=== PATIENT | female | born 1955 | race Caucasian/White ===

== ENCOUNTER 2017-01-11 12:10 | Emergency (ER) | payer BC ==
[2017-01-11 12:17] VITALS: BP 135/72; PULSE 98; TEMP 98.4; BMI 26.4
--- NOTE | 2017-01-11 12:37 | PDOC ---
Attending Attestation - Resident Resident Name: Luis Alberto Fowler - HPI HPI: 01/15/17 09:26 Pt presents to the ED complaining of perineal abscess denies systemic complaints. 01/15/17 09:52 - Physicial Exam PE: 01/15/17 09:52 + abscess to the perineum. No bartholins. No surrounding cellulitis. - Medical Decision Making 01/15/17 09:53 I and D performed inthe ED. Patient will be discharged bome with antibiotics.
[2017-01-11] MEDS ORDERED: LIDOCAINE 1%/EPI 1:100000 (50 ML MULTI DOSE VIAL) INF ONE (14:15)
[2017-01-11] MEDS ORDERED: LIDOCAINE 1%/EPI 1:100000 (20 ML MULTI DOSE VIAL) ONE (14:22)
[2017-01-11] MEDS ORDERED: CLINDAMYCIN HCL 300 MG CAPSULE PO ONE (14:51)
[2017-01-11] MEDS ORDERED: CLINDAMYCIN HCL 150 MG CAPSULE (FP) ONE (14:58)
--- NOTE | 2017-01-11 15:02 | PDOC ---
History of Present Illness - General Chief Complaint: Abscess Boil Stated Complaint: ABSCESS/ LOWER PELVIC Time Seen by Provider: 01/11/17 12:34 - History of Present Illness Initial Comments: 01/11/17 14:57 61F with dm2 presents with abscess to the left labia majora for the past 5 days , She describes the abscess as being pea-sized on the Thursday increasing to the size of a golf ball today. She tried hot compresses and witness some bloody suppuration. No dysuria, vaginal discharge or fever. Past History - Past Medical History Allergies/Adverse Reactions: Allergies Allergy/AdvReac Type Severity Reaction Status Date / Time No Known Drug Allergies Allergy Verified 01/11/17 12:17 Home Medications: Ambulatory Orders Levothyroxine [Synthroid -] 100 mcg PO DAILY 08/15/15 Clindamycin [Cleocin -] 300 mg PO TID #21 capsule 01/11/17 Insulin Glargine,Hum.rec.anlog [Lantus (nf)] 8 - 10 units SQ AM 01/11/17 Diabetes: Yes HTN: Yes Thyroid Disease: Yes - Suicide/Smoking/Psychosocial Hx Smoking History: Current every day smoker Have you smoked in the past 12 months: Yes Number of Cigarettes Smoked Daily: 5 Information on smoking cessation initiated: No Hx Alcohol Use: No Drug/Substance Use Hx: No Substance Use Type: None Review of Systems - Review of Systems Constitutional: No: Chills, Diaphoresis, Fever HEENTM: No: Symptoms Reported Respiratory: No: Symptoms reported Cardiac (ROS): No: Symptoms Reported ABD/GI: No: Symptoms Reported : No: Burning, Dysuria, Discharge, Incontinence Integumentary: Yes: Erythema *Physical Exam - Vital Signs Last Vital Signs Temp Pulse Resp BP Pulse Ox 98.4 F 98 H 20 135/72 97 01/11/17 12:14 01/11/17 12:14 01/11/17 12:14 01/11/17 12:14 01/11/17 12:14 - Physical Exam General Appearance: Yes: Nourished, Appropriately Dressed. No: Apparent Distress HEENT: positive: EOMI, MARILYN, Normal ENT Inspection Respiratory/Chest: positive: Lungs Clear, Normal Breath Sounds. negative: Chest Tender Cardiovascular: positive: Regular Rhythm, Regular Rate, S1, S2 Female Pelvic Exam: negative: Bartholin mass (abcess is on the labia majora 3cm by 3cm but doesn't extend to the mucosa.) Neurologic: positive: Fully Oriented, Alert, Normal Mood/Affect, Normal Response , Motor Strength 5/5 Procedures - Consent Consent obtained: Verbal, From Patient - Incision and Drainage I&D Site: Left: Other (non-bartholin labia majora abcess ) Betadine cleansed: Yes Anesthesia: 1% Lidocaine Volume(ml): 10 Blade Size: 11 Attempts: 1 Iodinated Packin in Complications: none Dressing: Yes ED Treatment Course - Medications Given in the ED: ED Medications Discontinued Medications Generic Name Dose Route Start Last Admin Trade Name Freq PRN Reason Stop Dose Admin Lidocaine/Epinephrine 10 ml 01/11/17 14:15 01/11/17 14:27 Xylocaine 1%-Epi 1:100,000 INF 01/11/17 14:16 10 ml ONCE ONE Administration Medical Decision Making - Medical Decision Making 01/11/17 15:05 61F with non-batholin left labia majora abscess for 5 days. afebrile. I&D well tolerated, pack with iodine packing. given Clindamycine course Come back in 2 days for packing removal or have your obgyn do it. *DC/Admit/Observation/Transfer Diagnosis at time of Disposition: Abscess of labia majora - Discharge Dispostion Disposition: HOME Condition at time of disposition: Improved Admit: No - Prescriptions Prescriptions: Clindamycin [Cleocin -] 300 mg PO TID #21 capsule - Referrals Referrals: Cj Hayes MD [Primary Care Provider] - Tiana Barbour MD [Staff Physician] - - Patient Instructions Printed Discharge Instructions: DI for Incision and Drainage of a Skin Abscess Additional Instructions: Come back in 2 days for packing removal here or other provider.
== END 2017-01-11 15:19 | disposition home or self-care (01) ==
LOC: JER 12:10
PROC: 0U9M0ZZ Drainage of Vulva, Open Approach (ICD-10-PCS; principal; 2017-01-11)
DX: N76.4 Abscess of vulva (principal); I10 Essential (primary) hypertension; E11.9 Type 2 diabetes mellitus without complications; E03.9 Hypothyroidism, unspecified; Z79.4 Long term (current) use of insulin; F17.210 Nicotine dependence, cigarettes, uncomplicated
CPT/HCPCS: 99282-25

== ENCOUNTER 2017-04-22 12:55 | Day surgery (SDC) | payer BC ==
[2017-04-21 11:09] VITALS: BMI 24.4
--- NOTE | 2017-04-22 14:31 | HP ---
[facility] - Chief Complaint Chief Complaint: right hand numbness - Past Medical History Allergies/Adverse Reactions: Allergies Allergy/AdvReac Type Severity Reaction Status Date / Time No Known Drug Allergies Allergy Verified 04/22/17 13:24 - Current Medications Current Medications: Home Medications Medication Instructions Recorded Levothyroxine [Synthroid -] 100 mcg PO DAILY 08/15/15 Hydrocodone/Acetaminophen [[place] 1 each PO Q6H PRN #40 tablet MDD 4 04/22/17 5-325 Tablet] Satellite Physical Exam - Physical Examination Vital Signs: Vital Signs Period Temp Pulse Resp BP Sys/Randolph Pulse Ox Last 24 Hr 95 18 99/51 98 General Appearance: Well Nourished, Well Developed, Alert & Oriented x3 ENT: Clear Lung: Normal air movement Heart: Regular rate & rhythm Extremities: Other (right hand- + phalens, + tinels, EMG + cts, cubital tunnel syndrome) Neurological: Intact, Alert, Oriented Satellite Impression/Plan - Impression/Plan Impression: right cts, cubital tunnel syndrome Operative Procedure: right cts, ulna nerve transposition Date to be Performed: 04/22/17
[2017-04-22] MEDS ORDERED: BUPIVACAINE HCL/PF 0.5% (5MG/ML) 10 ML VIAL ONE (15:33)
[2017-04-22] MEDS ORDERED: LIDOCAINE HCL 1%, 10 MG/ML (20ML VIAL) ONE ×2 (15:33→17:01)
[2017-04-22] MEDS ORDERED: MIDAZOLAM HCL 2 MG/2 ML SINGLE DOSE VIAL ONE (16:19)
[2017-04-22] MEDS ORDERED: PROPOFOL 20 ML ONE ×2 (16:27)
[2017-04-22] MEDS ORDERED: DESFLURANE GAS 240 ML BOTTLE IH ONE (16:44)
[2017-04-22] MEDS ORDERED: oxyCODONE HCL 5 MG TABLET PO PRN (16:59)
[2017-04-22] MEDS ORDERED: ONDANSETRON 4 MG/2 ML VIAL IVPUSH PRN (16:59)
[2017-04-22] MEDS ORDERED: LACTATED RINGERS SOLUTION 1,000 ML IV SCH (17:00)
[2017-04-22] MEDS ORDERED: LIDOCAINE HCL 1%, 10 MG/ML (20ML VIAL) INF ONE (17:20)
--- NOTE | 2017-04-22 17:40 | OP ---
Operative Note - Note: Operative Date: 04/22/17 ([facility]) Pre-Operative Diagnosis: right cts, cubital tunnel syndrome Operation: right ctr, tenosynovectomy, subcutaneous ulna nerve transposition Post-Operative Diagnosis: Same as Pre-op Surgeon: Nakul Tesfaye Hot Stick Man: Bao Vasquez Anesthesiologist/SUPERVISOR SULFUR[employer]ANT: Carmen Baires Anesthesia: General, Local Specimens Removed: tenosynovium Estimated Blood Loss (mls): 0 (tourniquet) Operative Report Dictated: Yes
[2017-04-22 18:24] VITALS: TEMP 98
[2017-04-22 19:07] VITALS: BP 131/74; PULSE 87
--- NOTE | 2017-04-24 11:39 | SPEC ---
DATE OF OPERATION: 04/22/2017 PREOPERATIVE DIAGNOSIS: Right cubital tunnel syndrome and carpal tunnel syndrome. PROCEDURE: 1. Right subcutaneous ulnar nerve transposition. 2. Right carpal tunnel release and tenosynovectomy. SURGEON: Nakul Tesfaye MD MANAGER RESEARCH AND DEVELOPMENT: ISAIAS Goodson ANESTHESIOLOGIST: Darrell Reynoso MD ANESTHESIA: Local injection of 15 mL of 0.50% Marcaine and 1% lidocaine mix and MAC anesthesia. DRAINS: None. COMPLICATIONS: None. SPECIMENS: Tenosynovium, right wrist. BLOOD LOSS: None. BLOOD GIVEN: None. FLUID REPLACEMENT: 700 mL Plasmalyte. 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 After understanding the potential risks, complications, alternatives and benefits of surgery versus nonsurgical treatment, the patient elected to undergo this procedure. DESCRIPTION OF PROCEDURE: The patient was brought to the operating room, peripheral IV placed and intravenous sedation was given. One gram of intravenous Ancef was given. MAC anesthesia was induced. A tourniquet was applied to the right upper arm and the right upper extremity was prepped and draped in sterile fashion. The entire case was done under 3.8 loupe magnification. A marking pen was utilized to sam out a longitudinal incision in an already existing skin crease. Twenty mL of 0.5% Marcaine mixed with 1% Lidocaine were injected in and around the surgical incision. The right upper extremity was elevated, exsanguinated with an Esmarch bandage, and the tourniquet inflated to 250 mmHg. A No. 15 scalpel blade was utilized to cut down through the skin. Subcutaneous hemostasis was achieved with the bipolar cautery. Dissection was done through the superficial palmar fascia. Self-retaining retractors were placed into the wound. Under direct visualization, the transverse carpal ligament was transected with a No. 15 scalpel blade, exposing the median nerve and the contents of the carpal tunnel. The distal and proximal extents of the release were completed with a Littler scissor and checked with irrigation and my small finger. They were seen to be complete. Limited dissection was done on the radial side of the median nerve and more extensive dissection was done on the ulnar side of the median nerve. The patients nerve was seen to be quite compressed by epineurium and therefore, a limited epineurotomy was performed. A Ragnell retractor was used to gently retract the median nerve in a radial direction. The patient had a lot of tenosynovitis and therefore, a tenosynovectomy was performed off all 9 flexor tendons. This was passed off the field as tenosynovium, right wrist. The floor of the carpal tunnel was checked. There were no abnormal masses or ganglion cysts. The area was copiously irrigated and washed out and closure begun. Undyed 4-0 Vicryl was used to close the deep dermal layer. Final skin reapproximation was done with horizontal mattress 4-0 nylon sutures. The area was then washed and dried, covered with Xeroform, 4x4s, Fluffs between the fingers, Webril and a 4-inch plaster roll was utilized to make a volar splint, which was then wrapped with Joseluis and Coban. A curvilinear incision was marked out over the medial aspect of the medial epicondyle of the right elbow. Next, a mixture of 10 mL of 0.50% Marcaine and 1% lidocaine was injected in and around the surgical incision. The incision was made with a No. 15 scalpel blade. Subcutaneous hemostasis was achieved with the bipolar cautery. Dissection was done with the Metzenbaum scissors, cauterizing along the way. Weitlaner retractors were placed into the wound. Dissection was done down through the fat layer, cauterizing vessels, exposing the medial epicondyle. The anterior flap was raised underneath the adipose layer for later transposition. The medial epicondyle was exposed. First, the ulnar nerve was identified more proximally around the triceps. A circumferential dissection was done and a [place] drain was placed around it. Next, in a methodical fashion, circumferential dissection was done moving more distally, freeing up the ulnar nerve from surrounding soft tissue. The roof of the cubital tunnel was released. This was quite tight and the Lofton's ligament between the two heads of the FCU muscle was also identified and opened. There was one point of compression around the medial intramuscular septum. This was also decompressed with a No. 15 scalpel blade. I transposed the nerve. There were no points of compression. I completed the release distally and proximally with my index finger. I again transposed it. It looked good distally and proximally with no points of compression and the pressure was released. The area was copiously irrigated and washed out. Next, using 2-0 Vicryl suture, I tacked down the deep adipose layer to the medial epicondyle with the ulnar nerve transposed anterior to the axis of rotation of the medial epicondyle. I was able to floss the ulnar nerve. There were no points of compression. I then put in other 2-0 Vicryl sutures to hold the transposition position. It was checked along the way. It looked good. The deep adipose layer was closed with 2-0 Vicryl. The deep dermal layer was closed with 4-0 undyed Vicryl. The skin was reapproximated with a running subcuticular 4-0 Biosyn stitch. The area was then washed and dried, covered with Steri-Strips, 4 x 4's and Webril. A 5-inch Ortho-Glass posterior splint was applied, wrapped with Joseluis and Kobe bandages. The tourniquet was taken down after a total tourniquet time of one hour. There were no complications during the case. The patient tolerated the procedure quite well and was brought to the ambulatory recovery room in stable condition. Horace [id number]
--- NOTE | 2017-04-29 17:15 | PATH ---
Surgical Pathology Report Patient Name: ROXANA SANTANA [facility]. Rec. #: [id number] /Age/Gender: 1955 (Age: 61) / F Account: [id number] Location: [facility] Taken: 04/22/2017 Received: 04/23/2017 Reported: 04/29/2017 Physicians: Nakul Tesfaye M.D. Specimen(s) Received TENOSYNOVIUM RIGHT Clinical History Right carpal tunnel Final Diagnosis TENOSYNOVIUM, RELEASE: TENOSYNOVIUM, CARTILAGE AND SKELETAL MUSCLE. Electronically Signed Indira Nj M.D. Gross Description Received in formalin labeled "right tenosynovium," is a 1.1 x 0.8 x 0.2 cm aggregate of omalley-yellow, irregular portions of soft tissue, consistent with tenosynovium. The specimen is entirely submitted in one cassette. 04/23/201704/23/2017
== END 2017-04-22 19:07 | disposition home or self-care (01) ==
LOC: JASU-SURG 12:55
PROVIDERS: ATTEND Orthopaedic Surgery
PROC: 01N50ZZ Release Median Nerve, Open Approach (ICD-10-PCS; principal; 2017-04-22 14:30)
PROC: 01S40ZZ Reposition Ulnar Nerve, Open Approach (ICD-10-PCS; 2017-04-22 14:30)
DX: G56.01 Carpal tunnel syndrome, right upper limb (principal); G56.21 Lesion of ulnar nerve, right upper limb
CPT/HCPCS: 82962; 88304-TC; 94760

== ENCOUNTER 2021-04-27 12:23 | Observation (INO) | payer BC, OTHER ==
[2021-04-27] MEDS ORDERED: ACETAMINOPHEN 1000 MG/100 ML BAG IVPB ONE (13:39)
[2021-04-27] MEDS ORDERED: ACETAMINOPHEN INJECTION 100 ML IVPB ONE (13:45)
[2021-04-27 14:12] LABS: BASO % 1.1 % (0-2.0); EOS % 0.7 % (0-4.5); HEMATOCRIT 40.5 % (32.4-45.2); HEMOGLOBIN 13.2 GM/dL (10.7-15.3); LYMPH % 9.6 % (8-40); MCHC 32.5 g/dl (32.0-36.0); MEAN CELL VOLUME 95.4 fl (80-96); MEAN PLT VOLUME 9.7 fl (7.5-11.1); MONO % 4.7 % (3.8-10.2); NEUT % 83.9 % (42.8-82.8); PLATELET COUNT 227 10^3/uL (134-434); RBC 4.25 M/mm3 (3.60-5.2); RDW 13.6 % (11.6-15.6); WHITE BLOOD COUNT 13.9 K/mm3 (4.0-10.0)
[2021-04-27 14:22] LABS: INR 1.11 (0.83-1.09); PROTHROMBIN TIME (PATIENT) 12.8 SEC (9.7-13.0)
[2021-04-27 14:25] LABS: ACTIVATED PTT 32.6 SECONDS (25.2-36.5)
[2021-04-27 14:26] LABS: CALCIUM 8.7 mg/dL (8.5-10.1)
[2021-04-27 14:28] LABS: ALBUMIN 3.2 g/dl (3.4-5.0); BLOOD UREA NITROGEN 13.5 mg/dL (7-18)
[2021-04-27 14:31] LABS: CREATININE 0.8 mg/dL (0.55-1.3)
[2021-04-27 14:32] LABS: BILIRUBIN,TOTAL 0.9 mg/dL (0.2-1); TOT PROT 7.3 g/dl (6.4-8.2)
[2021-04-27] MEDS ORDERED: KETOROLAC TROMETHAMINE 15 MG/ML VIAL IVPUSH ONE (16:07)
[2021-04-27] MEDS ORDERED: KETOROLAC TROMETHAMINE 15 MG/ML VIAL ONE (16:09)
[2021-04-28] MEDS ORDERED: ACETAMINOPHEN 325 MG TABLET (FP) PO PRN (00:55)
[2021-04-28 02:45] VITALS: BMI 27.1
[2021-04-28] MEDS: LEVOTHYROXINE NA 125 MCG TABLET (FP) PO SCH (06:37)
[2021-04-28] MEDS: INSULIN SLIDING SCALE (NOVOLOG) 1 VIAL SQ SCH ×4 (07:05→21:25)
[2021-04-28 08:19] LABS: EPI CELLS 18 /uL (0-25.1); HYALINE CASTS 1 /uL (0-3.1); PH,URINE 5.5 (5.0-8.0); URINE APPEARANCE CLEAR; URINE BACTERIA 387 /uL (0-1359); URINE BILIRUBIN NEGATIVE (NEGATIVE); URINE COLOR YELLOW; URINE GLUCOSE (UA) NEGATIVE (NEGATIVE); URINE KETONE NEGATIVE (NEGATIVE); URINE LEUK ESTERASE NEGATIVE (NEGATIVE); URINE NITRITE NEGATIVE (NEGATIVE); URINE PROTEIN 3+ (NEGATIVE); URINE RBC 9 /uL (0-23.9); URINE UROBILINOGEN 0.2 mg/dL (0.2-1.0); URINE WBC 9 /uL (0-25.8)
[2021-04-28 09:09] LABS: BASO % 0.4 % (0-2.0); EOS % 1.4 % (0-4.5); HEMATOCRIT 36.5 % (32.4-45.2); HEMOGLOBIN 12.2 GM/dL (10.7-15.3); LYMPH % 7.4 % (8-40); MCH 31.9 pg (25.7-33.7); MCHC 33.4 g/dl (32.0-36.0); MEAN CELL VOLUME 95.5 fl (80-96); MEAN PLT VOLUME 9.5 fl (7.5-11.1); MONO % 5.6 % (3.8-10.2); NEUT % 85.2 % (42.8-82.8); PLATELET COUNT 196 10^3/uL (134-434); RBC 3.82 M/mm3 (3.60-5.2); RDW 13.3 % (11.6-15.6); WHITE BLOOD COUNT 13.7 K/mm3 (4.0-10.0)
[2021-04-28 09:31] LABS: MAGNESIUM 1.9 mg/dL (1.8-2.4); PHOSPHOROUS 2.8 mg/dL (2.5-4.9)
[2021-04-28] MEDS: LIDOCAINE 5% TOPICAL PATCH TP SCH (10:18)
[2021-04-28] MEDS: LISINOPRIL 20 MG TABLET PO SCH (10:19)
[2021-04-28] MEDS: ENOXAPARIN NA (PORCINE) 40 MG/0.4 ML DISP.SYRIN SQ SCH (10:19)
[2021-04-28] MEDS: KETOROLAC TROMETHAMINE 15 MG/ML VIAL IVPUSH PRN ×2 (10:19→17:32)
[2021-04-28] MEDS: LIDOCAINE PATCH REMOVAL MC SCH (21:25)
[2021-04-29] MEDS: INSULIN SLIDING SCALE (NOVOLOG) 1 VIAL SQ SCH ×4 (06:05→22:33)
[2021-04-29] MEDS: LEVOTHYROXINE NA 125 MCG TABLET (FP) PO SCH (06:05)
[2021-04-29] MEDS: ENOXAPARIN NA (PORCINE) 40 MG/0.4 ML DISP.SYRIN SQ SCH (09:56)
[2021-04-29] MEDS: LIDOCAINE 5% TOPICAL PATCH TP SCH (09:56)
[2021-04-29] MEDS: LISINOPRIL 20 MG TABLET PO SCH (09:57)
[2021-04-29 11:09] LABS: BASO % 0.7 % (0-2.0); EOS % 2.2 % (0-4.5); HEMATOCRIT 36.5 % (32.4-45.2); HEMOGLOBIN 11.9 GM/dL (10.7-15.3); LYMPH % 9.6 % (8-40); MCH 31.5 pg (25.7-33.7); MCHC 32.7 g/dl (32.0-36.0); MEAN CELL VOLUME 96.5 fl (80-96); MEAN PLT VOLUME 10.1 fl (7.5-11.1); MONO % 6.8 % (3.8-10.2); NEUT % 80.7 % (42.8-82.8); PLATELET COUNT 207 10^3/uL (134-434); RBC 3.78 M/mm3 (3.60-5.2); RDW 13.5 % (11.6-15.6); WHITE BLOOD COUNT 10.4 K/mm3 (4.0-10.0)
[2021-04-29 11:13] LABS: ALBUMIN 2.9 g/dl (3.4-5.0); BLOOD UREA NITROGEN 17.2 mg/dL (7-18); CALCIUM 8.8 mg/dL (8.5-10.1)
[2021-04-29 11:16] LABS: CREATININE 0.8 mg/dL (0.55-1.3)
[2021-04-29 11:19] LABS: BILIRUBIN,TOTAL 0.8 mg/dL (0.2-1)
[2021-04-29] MEDS ORDERED: POTASSIUM CHLORIDE ORAL LIQUID 20 MEQ/15 ML PO ONE (12:15)
[2021-04-29] MEDS: LIDOCAINE PATCH REMOVAL MC SCH (22:33)
[2021-04-30] MEDS: KETOROLAC TROMETHAMINE 15 MG/ML VIAL IVPUSH PRN ×2 (02:31→21:49)
[2021-04-30] MEDS: INSULIN SLIDING SCALE (NOVOLOG) 1 VIAL SQ SCH ×4 (06:12→21:50)
[2021-04-30] MEDS: LEVOTHYROXINE NA 125 MCG TABLET (FP) PO SCH (06:13)
[2021-04-30] MEDS: LISINOPRIL 20 MG TABLET PO SCH (10:37)
[2021-04-30] MEDS: ENOXAPARIN NA (PORCINE) 40 MG/0.4 ML DISP.SYRIN SQ SCH (10:37)
[2021-04-30] MEDS: LIDOCAINE 5% TOPICAL PATCH TP SCH (10:37)
[2021-04-30] MEDS: amLODIPine BESYLATE 5 MG TABLET (FP) PO SCH (12:01)
[2021-04-30] MEDS ORDERED: INSULIN (NOVOLOG) ASPART 100 UNITS/ML 10ML VIAL ONE (21:17)
[2021-04-30] MEDS: LIDOCAINE PATCH REMOVAL MC SCH (21:51)
[2021-05-01] MEDS: LEVOTHYROXINE NA 125 MCG TABLET (FP) PO SCH (06:04)
[2021-05-01] MEDS: INSULIN SLIDING SCALE (NOVOLOG) 1 VIAL SQ SCH (06:04)
[2021-05-01] MEDS ORDERED: POLYETHYLENE GLYCOL (HEALTHYLAX) 3350 17 GM PACKET PO PRN (07:35)
[2021-05-01] MEDS ORDERED: DOCUSATE NA 100 MG/10 ML UNIT-DOSE CUPS PO PRN (07:35)
[2021-05-01 07:59] VITALS: TEMP 98.3
[2021-05-01 09:23] LABS: HEMATOCRIT 35.5 % (32.4-45.2); HEMOGLOBIN 11.6 GM/dL (10.7-15.3); MCH 31.3 pg (25.7-33.7); MCHC 32.8 g/dl (32.0-36.0); MEAN CELL VOLUME 95.6 fl (80-96); MEAN PLT VOLUME 9.7 fl (7.5-11.1); PLATELET COUNT 267 10^3/uL (134-434); RBC 3.71 M/mm3 (3.60-5.2); RDW 13.1 % (11.6-15.6); WHITE BLOOD COUNT 6.9 K/mm3 (4.0-10.0)
[2021-05-01] MEDS: LISINOPRIL 20 MG TABLET PO SCH (09:50)
[2021-05-01] MEDS: amLODIPine BESYLATE 5 MG TABLET (FP) PO SCH (09:50)
[2021-05-01] MEDS: LIDOCAINE 5% TOPICAL PATCH TP SCH (09:50)
[2021-05-01] MEDS: ENOXAPARIN NA (PORCINE) 40 MG/0.4 ML DISP.SYRIN SQ SCH (09:50)
[2021-05-01 09:57] LABS: BLOOD UREA NITROGEN 16.1 mg/dL (7-18); CALCIUM 8.7 mg/dL (8.5-10.1)
[2021-05-01] MEDS ORDERED: DOCUSATE NA 100 MG/10 ML UNIT-DOSE CUPS PO SCH (10:00)
[2021-05-01] MEDS ORDERED: POLYETHYLENE GLYCOL (HEALTHYLAX) 3350 17 GM PACKET PO SCH (10:00)
[2021-05-01 10:01] LABS: CREATININE 0.6 mg/dL (0.55-1.3)
[2021-05-01 11:46] VITALS: BP 160/74; PULSE 74
== END 2021-05-01 12:52 | disposition home or self-care (01) ==
LOC: JER 12:23 → JERBED 23:21 → INTOOBSV 23:21 → J8W 04-28 01:50
PROVIDERS: ADMIT Hospitalist; ATTEND Internal Medicine
PROC: 3E033NZ Introduction of Analgesics, Hypnotics, Sedatives into Peripheral Vein, Percutaneous Approach (ICD-10-PCS; principal; 2021-04-27)
PROC: 3E023GC Introduction of Other Therapeutic Substance into Muscle, Percutaneous Approach (ICD-10-PCS; 2021-04-27)
PROC: 3E0333Z Introduction of Anti-inflammatory into Peripheral Vein, Percutaneous Approach (ICD-10-PCS; 2021-04-27)
DX: S32.592A Other specified fracture of left pubis, initial encounter for closed fracture (principal); W00.0XXA Fall on same level due to ice and snow, initial encounter; Y93.89 Activity, other specified; Y92.89 Other specified places as the place of occurrence of the external cause; E11.9 Type 2 diabetes mellitus without complications; I10 Essential (primary) hypertension; E07.9 Disorder of thyroid, unspecified; Z87.442 Personal history of urinary calculi; Z87.891 Personal history of nicotine dependence
CPT/HCPCS: 36415; 70450-TC; 72125-TC; 72170-TC-FY; 72192-TC; 73030-TC-LT-FY; 73060-TC-LT-FY; 73070-TC-LT-FY; 73562-TC-RT-FY; 80048; 80053; 81003; 82550; 82962; 83735; 84100; 85025; 85027; 85610; 85730; 86850; 86900; 86901; 87086; 93005; 93010; 97116-GP; 97161-GP; 99285-25; C9803; G0378; J0131; U0003; U0005

== ENCOUNTER 2021-10-03 04:14 | Day surgery (SDC) | payer BC ==
[2021-09-30 15:23] VITALS: BMI 28.3
[~2021-10-03 04:14] MED LIST: HEPARIN NA (PORCINE) 5,000 UNITS/ML 1ML VIAL SQ ONE; LIDOCAINE HCL 1%, 10 MG/ML (20ML VIAL) NR ONE
[2021-10-03] MEDS ORDERED: INSULIN REGULAR HUMAN 100 UNITS/ML *VIAL SQ ONE (10:34)
[2021-10-03] MEDS ORDERED: LIDOCAINE HCL 1%, 10 MG/ML (20ML VIAL) NR ONE (10:38)
[2021-10-03] MEDS ORDERED: HEPARIN NA (PORCINE) 5,000 UNITS/ML 1ML VIAL SQ ONE (10:39)
[2021-10-03] MEDS ORDERED: INSULIN (NOVOLOG) ASPART 100 UNITS/ML 10ML VIAL SQ ONE (11:00)
[2021-10-03] MEDS ORDERED: DEXMEDETOMIDINE HCL 200 MCG/2 ML IVPB ONE (13:19)
[2021-10-03] MEDS ORDERED: ceFAZolin SODIUM 1 GM VIAL IVPB ONE (13:33)
[2021-10-03] MEDS ORDERED: LIDOCAINE HCL 1%, 10 MG/ML (50 mL VIAL) INF ONE (13:39)
[2021-10-03 17:13] VITALS: BP 136/58; PULSE 67; TEMP 98.1
== END 2021-10-03 17:40 | disposition home or self-care (01) ==
LOC: JASU-SURG 04:14
PROVIDERS: ATTEND Surgery Vascular Surgery
PROC: B41DYZZ Fluoroscopy of Aorta and Bilateral Lower Extremity Arteries using Other Contrast (ICD-10-PCS; principal; 2021-10-03 12:00)
DX: I70.212 Atherosclerosis of native arteries of extremities with intermittent claudication, left leg (principal); I77.1 Stricture of artery
CPT/HCPCS: 75710-TC-FY; 76000-TC-FY; 82962; 94760; J1644

== ENCOUNTER 2021-11-07 04:01 | Day surgery (SDC) | payer BC ==
[2021-11-04 14:50] VITALS: BMI 28.3
[2021-11-07] MEDS ORDERED: INSULIN REGULAR HUMAN 100 UNITS/ML *VIAL SQ ONE (06:39)
[2021-11-07] MEDS ORDERED: INSULIN (NOVOLOG) ASPART 100 UNITS/ML 10ML VIAL SQ ONE (06:43)
[2021-11-07] MEDS ORDERED: LIDOCAINE HCL 1%, 10 MG/ML (20ML VIAL) ONE (07:08)
[2021-11-07] MEDS ORDERED: HEPARIN NA (PORCINE) 5,000 UNITS/ML 1ML VIAL ONE ×2 (07:09→08:44)
[2021-11-07] MEDS ORDERED: PROPOFOL 40 ML ONE (08:03)
[2021-11-07] MEDS ORDERED: MIDAZOLAM HCL 2 MG/2 ML SINGLE DOSE VIAL ONE (08:04)
[2021-11-07] MEDS ORDERED: ceFAZolin SODIUM 1 GM VIAL ONE (08:05)
[2021-11-07] MEDS ORDERED: LIDOCAINE HCL/PF 2% SDV 5ML VIAL ONE (08:05)
[2021-11-07] MEDS ORDERED: SODIUM CHLORIDE 0.9% P/F 10 ML VIAL IJ ONE (08:05)
[2021-11-07] MEDS ORDERED: ceFAZolin SODIUM 1 GM VIAL IVPB ONE (08:23)
[2021-11-07] MEDS ORDERED: hydrALAZINE HCL 20 MG/ML VIAL ONE (08:29)
[2021-11-07] MEDS ORDERED: LIDOCAINE HCL 1%, 10 MG/ML (20ML VIAL) INF ONE ×2 (08:40)
[2021-11-07] MEDS ORDERED: oxyCODONE HCL 5 MG TABLET PO PRN (09:12)
[2021-11-07] MEDS ORDERED: ONDANSETRON 4 MG/2 ML VIAL IVPUSH PRN (09:12)
[2021-11-07] MEDS ORDERED: PROMETHAZINE HCL 25 MG/1 ML VIAL IVPUSH PRN (09:12)
[2021-11-07] MEDS ORDERED: LACTATED RINGERS SOLUTION 1,000 ML IV SCH (09:15)
[2021-11-07 16:03] VITALS: RESP 20; TEMP 97.2
[2021-11-07 16:05] VITALS: BP 142/62; PULSE 75
== END 2021-11-07 12:50 | disposition home or self-care (01) ==
LOC: JASU-SURG 04:01
PROVIDERS: ATTEND Surgery Vascular Surgery
PROC: B41GZZZ Fluoroscopy of Left Lower Extremity Arteries (ICD-10-PCS; principal; 2021-11-07 08:40)
DX: I70.212 Atherosclerosis of native arteries of extremities with intermittent claudication, left leg (principal)
CPT/HCPCS: 76000-TC-FY; 82962; 94760; J1644

== ENCOUNTER 2022-04-21 08:58 | Emergency (ER) | payer BC ==
[2022-04-21 09:11] VITALS: BMI 28.3
[2022-04-21] MEDS ORDERED: ACETAMINOPHEN 325 MG TABLET (FP) PO ONE (10:10)
[2022-04-21] MEDS ORDERED: ASPIRIN 81 MG CHEWABLE TABLETS PO ONE (10:10)
[2022-04-21] MEDS ORDERED: ACETAMINOPHEN 325 MG TABLET (FP) ONE (10:19)
[2022-04-21] MEDS ORDERED: ASPIRIN 81 MG CHEWABLE TABLETS ONE (10:19)
[2022-04-21 10:49] LABS: PROTHROMBIN TIME (PATIENT) 11.5 SEC (9.7-13.0)
[2022-04-21 10:52] LABS: ACTIVATED PTT 33.4 SECONDS (25.2-36.5)
[2022-04-21 11:00] LABS: BASO % 0.6 % (0-2.0); EOS % 1.3 % (0-4.5); HEMATOCRIT 43.9 % (32.4-45.2); HEMOGLOBIN 14.3 GM/dL (10.7-15.3); LYMPH % 12.7 % (8-40); MCHC 32.6 g/dl (32.0-36.0); MEAN CELL VOLUME 98.1 fl (80-96); MEAN PLT VOLUME 9.9 fl (7.5-11.1); MONO % 5.6 % (3.8-10.2); NEUT % 79.8 % (42.8-82.8); PLATELET COUNT 329 10^3/uL (134-434); RBC 4.47 M/mm3 (3.60-5.2); RDW 13.5 % (11.6-15.6); WHITE BLOOD COUNT 14.1 K/mm3 (4.0-10.0)
[2022-04-21 11:04] LABS: CHLORIDE 103 mmol/L (98-107); SODIUM 138 mmol/L (136-145)
[2022-04-21 11:06] LABS: CALCIUM 9.4 mg/dL (8.5-10.1); LIPASE 94 U/L (73-393)
[2022-04-21 11:07] LABS: ALBUMIN 3.1 g/dl (3.4-5.0); ANION GAP 4 MMOL/L (8-16); BLOOD UREA NITROGEN 11.4 mg/dL (7-18); CO2 31 mmol/L (21-32); GLUCOSE,RANDOM 208 mg/dL (74-106)
[2022-04-21 11:09] LABS: CREATININE 0.9 mg/dL (0.55-1.3); SGOT/AST 27 U/L (15-37)
[2022-04-21 11:10] LABS: SGPT/ALT 12 U/L (13-61)
[2022-04-21 11:12] LABS: BILIRUBIN,TOTAL 0.4 mg/dL (0.2-1); TOT PROT 7.7 g/dl (6.4-8.2)
[2022-04-21 11:13] LABS: ALK PHOS 84 U/L (45-117)
[2022-04-21] MEDS ORDERED: HEPARIN NA (PORCINE) 5,000 UNITS/ML 1ML VIAL IVPUSH PRN ×4 (13:06→13:15)
[2022-04-21] MEDS ORDERED: HEPARIN NA (PORCINE) 5,000 UNITS/ML 1ML VIAL ONE (13:12)
[2022-04-21] MEDS ORDERED: HEPARIN INFUSION - 25,000 UNITS/500 ML INFUS.BAG IVPB ONE (13:12)
[2022-04-21] MEDS ORDERED: HEPARIN SOD,PORK IN 0.45% NACL 25,000 UNIT/500 ML INFUS.BAG IVPB SCH (13:15)
[2022-04-21] MEDS ORDERED: CLOPIDOGREL BISULFATE 300 MG TABLET PO ONE (15:03)
[2022-04-21] MEDS ORDERED: CLOPIDOGREL BISULFATE 300 MG TABLET ONE (15:06)
[2022-04-21 15:30] VITALS: BP 103/63; PULSE 64; RESP 23; TEMP 98.7
== END 2022-04-21 15:20 | disposition short-term general hospital (02) ==
LOC: JER 08:58
PROC: 3E033GC Introduction of Other Therapeutic Substance into Peripheral Vein, Percutaneous Approach (ICD-10-PCS; principal; 2022-04-21)
DX: R07.9 Chest pain, unspecified (principal)
CPT/HCPCS: 0241U-QW; 36415; 71046-TC-FY; 71275-TC; 74174-TC; 80053; 83690; 83735; 84484; 85025; 85610; 85730; 93005; 93010; 93306-TC; 99285-25; Q9967

== ENCOUNTER 2023-04-29 11:38 | Inpatient (IN) | payer OTHER, BC ==
[2023-04-29 11:43] VITALS: BMI 27.3
[2023-04-29 14:33] LABS: BASO % 1.2 % (0-2.0); EOS % 2.5 % (0-4.5); HEMATOCRIT 35.7 % (32.4-45.2); HEMOGLOBIN 11.7 GM/dL (10.7-15.3); LYMPH % 12.3 % (8-40); MCHC 32.9 g/dl (32.0-36.0); MEAN CELL VOLUME 97.4 fl (80-96); MEAN PLT VOLUME 8.8 fl (7.5-11.1); MONO % 4.9 % (3.8-10.2); NEUT % 79.1 % (42.8-82.8); PLATELET COUNT 352 10^3/uL (134-434); RBC 3.66 M/mm3 (3.60-5.2); RDW 13.9 % (11.6-15.6); WHITE BLOOD COUNT 10.7 K/mm3 (4.0-10.0)
[2023-04-29 14:41] LABS: INR 1.06 (0.83-1.09); PROTHROMBIN TIME (PATIENT) 12.3 SEC (9.7-13.0)
[2023-04-29 14:43] LABS: ACTIVATED PTT 35.7 SECONDS (25.2-36.5)
[2023-04-29 14:58] LABS: POTASSIUM 4.1 mmol/L (3.5-5.1)
[2023-04-29 15:00] LABS: ALBUMIN 3.1 g/dl (3.4-5.0); BLOOD UREA NITROGEN 22.3 mg/dL (7-18)
[2023-04-29 15:02] LABS: CREATININE 1.5 mg/dL (0.55-1.3)
[2023-04-29 15:04] LABS: BILIRUBIN,TOTAL 0.3 mg/dL (0.2-1); TOT PROT 7.5 g/dl (6.4-8.2)
[2023-04-29] MEDS ORDERED: ACETAMINOPHEN INJECTION 100 ML IVPB ONE (15:06)
[2023-04-29] MEDS ORDERED: morphine SULFATE 4 MG/ML VIAL ONE ×2 (15:06→20:24)
[2023-04-29] MEDS: morphine CARPU-JECT 4 MG/1 ML DISP.SYRIN IVPUSH ONE ×2 (15:33→20:00)
[2023-04-29] MEDS: ACETAMINOPHEN 1000 MG/100 ML BAG IVPB ONE (15:34)
[2023-04-29 15:52] LABS: ERYTHROCYTE SEDIMENTATION RATE 95 mm/hr (0-30)
[2023-04-29] MEDS ORDERED: SODIUM CHLORIDE 0.9% 500 ML INFUS.BAG IV ONE ×2 (16:10)
[2023-04-29] MEDS ORDERED: HEPARIN - 25,000 UNIT in SODIUM CHLORIDE 495 ML IV SCH (18:00)
[2023-04-29] MEDS ORDERED: PIPERACILLIN/TAZOB 3.375 GM 3.375 GM in DEXTROSE 5%-WATER - 50 ML IVPB SCH (18:00)
[2023-04-29] MEDS ORDERED: HEPARIN NA (PORCINE) 5,000 UNITS/ML 1ML VIAL IVPUSH PRN ×2 (18:00)
[2023-04-29] MEDS ORDERED: VANCOMYCIN 1 GRAM (PRE-DOCKED) 1,000 MG/250 ML BAG IVPB ONE (20:12)
[2023-04-29] MEDS: VANCOMYCIN 1,000 MG in DEXTROSE 5%-WATER - 250 ML IVPB ONE (20:23)
[2023-04-29] MEDS: SODIUM CHLORIDE 0.9% 500 ML INFUS.BAG IV ONE (21:51)
[2023-04-29] MEDS ORDERED: amLODIPine BESYLATE 10 MG TABLET (FP) ONE (21:53)
[2023-04-29] MEDS ORDERED: PIPERACILLIN/TAZOB 3.375 GM 3.375 GM/50 ML BAG IVPB ONE (21:54)
[2023-04-29] MEDS ORDERED: HEPARIN NA (PORCINE) 5,000 UNITS/ML 1ML VIAL SQ SCH (22:00)
[2023-04-29] MEDS: amLODIPine BESYLATE 10 MG TABLET (FP) PO SCH (22:04)
[2023-04-29] MEDS: PIPERACILLIN/TAZOBACTAM 4.5 GM VIAL IVPB ONE (22:04)
[2023-04-29] MEDS ORDERED: ENOXAPARIN NA (PORCINE) 60 MG/0.6 ML DISP.SYRIN SQ ONE (22:22)
[2023-04-29] MEDS: ENOXAPARIN NA (PORCINE) 60 MG/0.6 ML DISP.SYRIN SQ SCH (22:29)
[2023-04-29] MEDS ORDERED: ACETAMINOPHEN 325 MG TABLET (FP) ONE (23:40)
[2023-04-29] MEDS: ACETAMINOPHEN 325 MG TABLET (FP) PO PRN (23:43)
[2023-04-30] MEDS ORDERED: PIPERACILLIN/TAZOB 3.375 GM 3.375 GM/50 ML BAG IVPB ONE ×2 (05:39→14:03)
[2023-04-30] MEDS: PIPERACILLIN/TAZOB 3.375 GM 3.375 GM in DEXTROSE 5%-WATER - 50 ML IVPB SCH ×2 (05:51→16:58)
[2023-04-30 08:05] LABS: BASO % 0.9 % (0-2.0); EOS % 3.3 % (0-4.5); HEMATOCRIT 34.2 % (32.4-45.2); HEMOGLOBIN 10.9 GM/dL (10.7-15.3); LYMPH % 20.3 % (8-40); MCH 31.7 pg (25.7-33.7); MEAN CELL VOLUME 99.3 fl (80-96); MEAN PLT VOLUME 9.1 fl (7.5-11.1); MONO % 6.9 % (3.8-10.2); NEUT % 68.6 % (42.8-82.8); PLATELET COUNT 329 10^3/uL (134-434); RBC 3.44 M/mm3 (3.60-5.2); RDW 13.8 % (11.6-15.6); WHITE BLOOD COUNT 8.9 K/mm3 (4.0-10.0)
[2023-04-30 08:12] LABS: CALCIUM 8.2 mg/dL (8.5-10.1)
[2023-04-30 08:13] LABS: ALBUMIN 2.8 g/dl (3.4-5.0); BLOOD UREA NITROGEN 21.2 mg/dL (7-18); CHOLESTEROL 302 mg/dL (50-200); MAGNESIUM 2.1 mg/dL (1.8-2.4)
[2023-04-30 08:14] LABS: LDL CHOLESTEROL (ONLY SJRH) 184 mg/dL (5-100)
[2023-04-30 08:16] LABS: CREATININE 1.5 mg/dL (0.55-1.3); HDL CHOLESTEROL 51 mg/dL (40-60)
[2023-04-30 08:17] LABS: BILIRUBIN,TOTAL 0.4 mg/dL (0.2-1)
[2023-04-30 08:18] LABS: TOT PROT 7.1 g/dl (6.4-8.2)
[2023-04-30] MEDS ORDERED: hydrALAZINE HCL 25 MG TABLET (FP) ONE (13:59)
[2023-04-30] MEDS: hydrALAZINE HCL 25 MG TABLET (FP) PO SCH ×2 (14:02→23:02)
[2023-04-30] MEDS ORDERED: ACETAMINOPHEN 325 MG TABLET (FP) ONE (14:27)
[2023-04-30] MEDS ORDERED: CEFTRIAXONE 2 GM in DEXTROSE 5%-WATER 100 ML IVPB ONE (16:00)
[2023-04-30] MEDS ORDERED: hydrALAZINE HCL 25 MG TABLET (FP) PO SCH ×2 (16:58→16:59)
[2023-04-30] MEDS ORDERED: ATORVASTATIN CA 40 MG TABLET (FP) PO SCH (22:00)
[2023-04-30] MEDS: ATORVASTATIN CA 40 MG TABLET (FP) PO SCH (23:02)
[2023-05-01] MEDS: ACETAMINOPHEN 1000 MG/100 ML BAG IVPB PRN (01:54)
[2023-05-01] MEDS: MELATONIN 5 MG TABLETS PO PRN (01:55)
[2023-05-01 11:21] LABS: HEMATOCRIT 31.9 % (32.4-45.2); HEMOGLOBIN 10.6 GM/dL (10.7-15.3); MCH 32.2 pg (25.7-33.7); MCHC 33.3 g/dl (32.0-36.0); MEAN CELL VOLUME 96.9 fl (80-96); MEAN PLT VOLUME 9.3 fl (7.5-11.1); PLATELET COUNT 309 10^3/uL (134-434); RBC 3.29 M/mm3 (3.60-5.2); RDW 13.9 % (11.6-15.6); WHITE BLOOD COUNT 9.4 K/mm3 (4.0-10.0)
[2023-05-01] MEDS ORDERED: HEPARIN NA (PORCINE) 5,000 UNITS/ML 1ML VIAL ONE (16:36)
[2023-05-01] MEDS ORDERED: LIDOCAINE HCL 1%, 10 MG/ML (20ML VIAL) ONE (16:36)
[2023-05-01] MEDS ORDERED: PROPOFOL 20 ML ONE (16:56)
[2023-05-01] MEDS ORDERED: MIDAZOLAM HCL 2 MG/2 ML SINGLE DOSE VIAL ONE (16:56)
[2023-05-01] MEDS ORDERED: LIDOCAINE HCL/PF 2% SDV 5ML VIAL ONE (16:56)
[2023-05-01] MEDS: LIDOCAINE HCL 1%, 10 MG/ML (20ML VIAL) NR ONE ×2 (17:29→19:25)
[2023-05-01] MEDS: HEPARIN NA (PORCINE) 5,000 UNITS/ML 1ML VIAL SQ ONE ×2 (17:30→19:31)
[2023-05-01] MEDS ORDERED: ceFAZolin SODIUM 1 GM VIAL ONE (19:21)
[2023-05-01] MEDS: ceFAZolin SODIUM 1 GM VIAL IVPB ONE (19:22)
[2023-05-01] MEDS ORDERED: PROMETHAZINE HCL 25 MG/1 ML VIAL IVPB PRN (20:17)
[2023-05-01] MEDS ORDERED: ONDANSETRON 4 MG/2 ML VIAL IVPUSH PRN (20:17)
[2023-05-01] MEDS ORDERED: ACETAMINOPHEN INJECTION 100 ML IVPB ONE (20:23)
[2023-05-01] MEDS ORDERED: ACETAMINOPHEN 325 MG TABLET (FP) PO PRN (20:34)
[2023-05-01] MEDS ORDERED: ACETAMINOPHEN 1000 MG/100 ML BAG IVPB PRN (20:34)
[2023-05-01] MEDS: ACETAMINOPHEN 1000 MG/100 ML BAG IVPB ONE (21:15)
[2023-05-01] MEDS: hydrALAZINE HCL 20 MG/ML VIAL IVPUSH ONE (21:16)
[2023-05-01] MEDS: APIXABAN 5 MG TABLET PO SCH (21:31)
[2023-05-01] MEDS: CEFTRIAXONE 2 GM in DEXTROSE 5%-WATER 100 ML IVPB ONE (21:31)
[2023-05-01] MEDS: LACTATED RINGERS SOLUTION 1,000 ML IV SCH (22:27)
[2023-05-01] MEDS: hydrALAZINE HCL 50 MG TABLET (FP) PO SCH (22:34)
[2023-05-01] MEDS: ATORVASTATIN CA 40 MG TABLET (FP) PO SCH (22:35)
[2023-05-02 08:32] LABS: HEMATOCRIT 32.4 % (32.4-45.2); HEMOGLOBIN 10.4 GM/dL (10.7-15.3); MCH 31.5 pg (25.7-33.7); MCHC 32.1 g/dl (32.0-36.0); MEAN CELL VOLUME 98.3 fl (80-96); MEAN PLT VOLUME 9.1 fl (7.5-11.1); PLATELET COUNT 284 10^3/uL (134-434); RBC 3.29 M/mm3 (3.60-5.2); RDW 13.7 % (11.6-15.6); WHITE BLOOD COUNT 11.8 K/mm3 (4.0-10.0)
[2023-05-02] MEDS: amLODIPine BESYLATE 10 MG TABLET (FP) PO SCH (10:05)
[2023-05-02] MEDS: ACETAMINOPHEN 325 MG TABLET (FP) PO PRN (15:21)
[2023-05-03 08:26] LABS: HEMATOCRIT 31.8 % (32.4-45.2); HEMOGLOBIN 10.4 GM/dL (10.7-15.3); MCH 32.2 pg (25.7-33.7); MCHC 32.8 g/dl (32.0-36.0); MEAN PLT VOLUME 9.3 fl (7.5-11.1); PLATELET COUNT 271 10^3/uL (134-434); RBC 3.24 M/mm3 (3.60-5.2); RDW 13.8 % (11.6-15.6); WHITE BLOOD COUNT 11.3 K/mm3 (4.0-10.0)
[2023-05-03] MEDS: oxyCODONE HCL 5 MG TABLET PO PRN (13:42)
[2023-05-04 08:46] LABS: HEMATOCRIT 30.1 % (32.4-45.2); HEMOGLOBIN 9.7 GM/dL (10.7-15.3); MCH 31.6 pg (25.7-33.7); MCHC 32.2 g/dl (32.0-36.0); MEAN CELL VOLUME 98.2 fl (80-96); MEAN PLT VOLUME 9.2 fl (7.5-11.1); PLATELET COUNT 260 10^3/uL (134-434); RBC 3.06 M/mm3 (3.60-5.2); RDW 13.4 % (11.6-15.6); WHITE BLOOD COUNT 11.9 K/mm3 (4.0-10.0)
[2023-05-05] MEDS: MELATONIN 5 MG TABLETS PO PRN (01:00)
[2023-05-05 05:53] VITALS: RESP 18
[2023-05-05 07:45] LABS: HEMATOCRIT 29.2 % (32.4-45.2); HEMOGLOBIN 9.5 GM/dL (10.7-15.3); MCH 31.8 pg (25.7-33.7); MCHC 32.5 g/dl (32.0-36.0); MEAN PLT VOLUME 9.3 fl (7.5-11.1); PLATELET COUNT 261 10^3/uL (134-434); RBC 2.98 M/mm3 (3.60-5.2); RDW 13.4 % (11.6-15.6)
[2023-05-05 08:25] LABS: POTASSIUM 3.4 mmol/L (3.5-5.1)
[2023-05-05 08:29] LABS: CALCIUM 8.3 mg/dL (8.5-10.1)
[2023-05-05 08:30] LABS: BLOOD UREA NITROGEN 20.4 mg/dL (7-18)
[2023-05-05 08:33] LABS: CREATININE 1.3 mg/dL (0.55-1.3)
[2023-05-05 08:34] LABS: BILIRUBIN,TOTAL 0.4 mg/dL (0.2-1)
[2023-05-05 08:51] LABS: ALBUMIN 2.2 g/dl (3.4-5.0)
[2023-05-05] MEDS: POTASSIUM CHLORIDE ORAL LIQUID 20 MEQ/15 ML PO ONE (12:19)
[2023-05-05 13:01] VITALS: PULSE 75; TEMP 97.8
[2023-05-05 14:49] VITALS: BP 151/62
== END 2023-05-05 19:30 | DRG 253 ==
LOC: JER 11:38 → JERBED 16:08 → J4S 04-30 15:50
PROVIDERS: ADMIT Internal Medicine; ATTEND Internal Medicine
PROC: 047P3ZZ Dilation of Right Anterior Tibial Artery, Percutaneous Approach (ICD-10-PCS; 2023-05-01)
PROC: 3E05317 Introduction of Other Thrombolytic into Peripheral Artery, Percutaneous Approach (ICD-10-PCS; 2023-05-01)
PROC: B40DYZZ Plain Radiography of Aorta and Bilateral Lower Extremity Arteries using Other Contrast (ICD-10-PCS; 2023-05-01)
PROC: 3E05317 Introduction of Other Thrombolytic into Peripheral Artery, Percutaneous Approach (ICD-10-PCS; 2023-05-01)
PROC: 047K3EZ Dilation of Right Femoral Artery with Two Intraluminal Devices, Percutaneous Approach (ICD-10-PCS; principal; 2023-05-01 16:30)
DX: T82.858A Stenosis of other vascular prosthetic devices, implants and grafts, initial encounter (principal); E11.52 Type 2 diabetes mellitus with diabetic peripheral angiopathy with gangrene; L03.115 Cellulitis of right lower limb; L03.116 Cellulitis of left lower limb; I70.721 Atherosclerosis of other type of bypass graft(s) of the extremities with rest pain, right leg; E11.621 Type 2 diabetes mellitus with foot ulcer; I10 Essential (primary) hypertension; L97.519 Non-pressure chronic ulcer of other part of right foot with unspecified severity; L97.509 Non-pressure chronic ulcer of other part of unspecified foot with unspecified severity; E03.9 Hypothyroidism, unspecified; Y83.9 Surgical procedure, unspecified as the cause of abnormal reaction of the patient, or of later complication, without mention of misadventure at the time of the procedure
CPT/HCPCS: 0241U-QW; 36415; 73630-TC-RT-FY; 75635-TC; 80053; 80061; 83036; 83605; 83735; 85025; 85027; 85610; 85651; 85730; 86140; 86850; 86900; 86901; 87040; 87635; 93005; 93010; 93970-TC; 94760; 97116-GP; 97161-GP; 99285-25; C1760; C1786; C1876; C1897; J0131; J1644; Q9967

== ENCOUNTER 2023-06-18 11:55 | Inpatient (IN) | payer OTHER, BC ==
[2023-06-18 12:09] VITALS: BMI 27.3
[2023-06-18] MEDS ORDERED: VANCOMYCIN 1 GRAM (PRE-DOCKED) 1,000 MG/250 ML BAG IVPB ONE ×2 (14:46→16:22)
[2023-06-18] MEDS ORDERED: PIPERACILLIN/TAZOB 4.5 GM 4.5 GM/100 ML BAG IVPB ONE (14:46)
[2023-06-18] MEDS ORDERED: ACETAMINOPHEN INJECTION 100 ML IVPB ONE (14:48)
[2023-06-18] MEDS: ACETAMINOPHEN 1000 MG/100 ML BAG IVPB ONE (15:00)
[2023-06-18] MEDS: PIPERACILLIN/TAZOB 4.5 GM 4.5 GM in DEXTROSE 5%-WATER 100 ML IVPB ONE (15:00)
[2023-06-18 15:17] LABS: BASO % 0.9 % (0-2.0); EOS % 2.6 % (0-4.5); HEMATOCRIT 34.2 % (32.4-45.2); LYMPH % 15.4 % (8-40); MCH 31.9 pg (25.7-33.7); MCHC 32.2 g/dl (32.0-36.0); MEAN CELL VOLUME 99.2 fl (80-96); MEAN PLT VOLUME 9.1 fl (7.5-11.1); MONO % 6.1 % (3.8-10.2); PLATELET COUNT 276 10^3/uL (134-434); RBC 3.45 M/mm3 (3.60-5.2); RDW 14.4 % (11.6-15.6); WHITE BLOOD COUNT 10.6 K/mm3 (4.0-10.0)
[2023-06-18 15:46] LABS: CHLORIDE 106 mmol/L (98-107); POTASSIUM 3.2 mmol/L (3.5-5.1); SODIUM 140 mmol/L (136-145)
[2023-06-18 15:47] LABS: CALCIUM 8.3 mg/dL (8.5-10.1)
[2023-06-18 15:48] LABS: ALBUMIN 2.8 g/dl (3.4-5.0); ANION GAP 3 mmol/L (4-13); BLOOD UREA NITROGEN 21.3 mg/dL (7-18); CO2 31 mmol/L (21-32); GLUCOSE,RANDOM 126 mg/dL (74-106)
[2023-06-18 15:51] LABS: CREATININE 1.5 mg/dL (0.55-1.3); SGOT/AST 13 U/L (15-37); SGPT/ALT 12 U/L (13-61)
[2023-06-18 15:53] LABS: BILIRUBIN,TOTAL 0.2 mg/dL (0.2-1); TOT PROT 6.6 g/dl (6.4-8.2)
[2023-06-18 15:54] LABS: ALK PHOS 73 U/L (45-117)
[2023-06-18 15:56] LABS: ERYTHROCYTE SEDIMENTATION RATE 68 mm/hr (0-30)
[2023-06-18] MEDS ORDERED: POTASSIUM CHLORIDE ORAL LIQUID 20 MEQ/15 ML ONE (16:22)
[2023-06-18] MEDS ORDERED: OXYCODONE HCL 5 MG PO PRN (16:57)
[2023-06-18] MEDS: VANCOMYCIN 1,000 MG in DEXTROSE 5%-WATER - 250 ML IVPB ONE (17:30)
[2023-06-18] MEDS: POTASSIUM CHLORIDE ORAL LIQUID 20 MEQ/15 ML PO ONE (17:30)
[2023-06-18] MEDS: oxyCODONE HCL 5 MG TABLET PO PRN (21:11)
[2023-06-18] MEDS: APIXABAN 5 MG TABLET PO SCH (21:11)
[2023-06-18] MEDS: INSULIN ASPART SLIDING SCALE (NOVOLOG) 1 VIAL SQ SCH (21:12)
[2023-06-18] MEDS: ATORVASTATIN CA 40 MG TABLET (FP) PO SCH (21:12)
[2023-06-18] MEDS: GABAPENTIN 300 MG CAPSULE PO SCH (21:12)
[2023-06-18] MEDS: hydrALAZINE HCL 25 MG TABLET (FP) PO SCH (21:12)
[2023-06-18] MEDS ORDERED: hydrALAZINE HCL 50 MG TABLET (FP) PO SCH (22:00)
[2023-06-19] MEDS: LEVOTHYROXINE NA 125 MCG TABLET (FP) PO SCH (06:00)
[2023-06-19 09:53] LABS: BASO % 0.8 % (0-2.0); EOS % 3.9 % (0-4.5); HEMATOCRIT 36.1 % (32.4-45.2); HEMOGLOBIN 11.9 GM/dL (10.7-15.3); LYMPH % 19.4 % (8-40); MCH 32.4 pg (25.7-33.7); MEAN CELL VOLUME 98.4 fl (80-96); MEAN PLT VOLUME 9.5 fl (7.5-11.1); MONO % 5.2 % (3.8-10.2); NEUT % 70.7 % (42.8-82.8); PLATELET COUNT 309 10^3/uL (134-434); RBC 3.67 M/mm3 (3.60-5.2); RDW 14.5 % (11.6-15.6)
[2023-06-19] MEDS ORDERED: ENOXAPARIN NA (PORCINE) 40 MG/0.4 ML DISP.SYRIN SQ SCH (10:00)
[2023-06-19 10:14] LABS: POTASSIUM 3.9 mmol/L (3.5-5.1)
[2023-06-19 10:20] LABS: ALBUMIN 2.8 g/dl (3.4-5.0); BLOOD UREA NITROGEN 16.3 mg/dL (7-18)
[2023-06-19 10:23] LABS: CREATININE 1.3 mg/dL (0.55-1.3)
[2023-06-19 10:34] LABS: BILIRUBIN,TOTAL 0.3 mg/dL (0.2-1)
[2023-06-19] MEDS: amLODIPine BESYLATE 10 MG TABLET (FP) PO SCH (10:55)
[2023-06-19] MEDS ORDERED: LEVOTHYROXINE NA 125 MCG TABLET (FP) PO SCH (11:44)
[2023-06-19] MEDS: AMOX TR/POT CLAV 875MG/125MG TABLETS (FP) PO SCH (17:12)
[2023-06-20] MEDS: LEVOTHYROXINE 100 MCG, LEVOTHYROXINE 75 MCG PO SCH (06:27)
[2023-06-20] MEDS: LIOTHYRONINE SODIUM 5 MCG TABLET PO SCH (09:17)
[2023-06-22] MEDS: COLLAGENASE CLOSTRIDIUM HIST. 30 GRAMS TUBE TP SCH (11:48)
[2023-06-22 13:05] LABS: POTASSIUM 3.7 mmol/L (3.5-5.1)
[2023-06-22 13:08] LABS: ALBUMIN 2.7 g/dl (3.4-5.0); BLOOD UREA NITROGEN 17.7 mg/dL (7-18); CALCIUM 8.8 mg/dL (8.5-10.1)
[2023-06-22 13:11] LABS: CREATININE 1.4 mg/dL (0.55-1.3)
[2023-06-22 13:13] LABS: BILIRUBIN,TOTAL 0.3 mg/dL (0.2-1); TOT PROT 6.8 g/dl (6.4-8.2)
[2023-06-22 14:11] VITALS: RESP 18
[2023-06-23] MEDS: LEVOTHYROXINE NA 200 MCG TABLET PO SCH (06:41)
[2023-06-23] MEDS: ACETAMINOPHEN 325 MG TABLET (FP) PO PRN (12:16)
[2023-06-23 14:23] VITALS: BP 166/68; PULSE 73; TEMP 98.5
== END 2023-06-23 16:43 | disposition home or self-care (01) | DRG 300 ==
LOC: JER 11:55 → JERBED 13:57 → J5S 18:42
PROVIDERS: ADMIT Internal Medicine; ATTEND Internal Medicine
DX: E11.52 Type 2 diabetes mellitus with diabetic peripheral angiopathy with gangrene (principal); L03.115 Cellulitis of right lower limb; I96 Gangrene, not elsewhere classified; M86.9 Osteomyelitis, unspecified; I10 Essential (primary) hypertension; I25.10 Atherosclerotic heart disease of native coronary artery without angina pectoris; E03.9 Hypothyroidism, unspecified; E11.69 Type 2 diabetes mellitus with other specified complication; H05.20 Unspecified exophthalmos
CPT/HCPCS: 36415; 73630-TC-LT; 73630-TC-RT-FY; 73718-TC-RT; 80053; 82962; 83036; 84439; 84443; 85025; 85651; 86140; 87040; 93005; 93010; 99285-25; G0463-25; J0131

== ENCOUNTER 2023-07-09 12:56 | Inpatient (IN) | payer OTHER, BC ==
[2023-07-09] MEDS ORDERED: PIPERACILLIN/TAZOB 3.375 GM 3.375 GM/50 ML BAG IVPB ONE (14:28)
[2023-07-09] MEDS: PIPERACILLIN/TAZOB 3.375 GM 3.375 GM in DEXTROSE 5%-WATER - 50 ML IVPB ONE (14:32)
[2023-07-09 14:36] LABS: BASO % 0.5 % (0-2.0); EOS % 3.1 % (0-4.5); HEMATOCRIT 31.7 % (32.4-45.2); HEMOGLOBIN 10.3 GM/dL (10.7-15.3); LYMPH % 14.3 % (8-40); MCH 32.5 pg (25.7-33.7); MCHC 32.5 g/dl (32.0-36.0); MEAN CELL VOLUME 99.9 fl (80-96); MEAN PLT VOLUME 9.6 fl (7.5-11.1); MONO % 6.6 % (3.8-10.2); NEUT % 75.5 % (42.8-82.8); PLATELET COUNT 337 10^3/uL (134-434); RBC 3.18 M/mm3 (3.60-5.2); RDW 14.2 % (11.6-15.6); WHITE BLOOD COUNT 8.8 K/mm3 (4.0-10.0)
[2023-07-09] MEDS: VANCOMYCIN HCL 1,500 MG in DEXTROSE 5%-WATER - 500 ML IVPB ONE (14:45)
[2023-07-09 14:49] LABS: INR 1.17 (0.83-1.09); PROTHROMBIN TIME (PATIENT) 13.6 SEC (9.7-13.0)
[2023-07-09 14:51] LABS: ACTIVATED PTT 32.2 SECONDS (25.2-36.5)
[2023-07-09] MEDS: VANCOMYCIN PREMIX 1.5 GM 1,500 MG/300 ML BAG IVPB ONE (15:00)
[2023-07-09 15:01] LABS: CALCIUM 8.6 mg/dL (8.5-10.1)
[2023-07-09 15:02] LABS: ALBUMIN 2.7 g/dl (3.4-5.0); BLOOD UREA NITROGEN 19.5 mg/dL (7-18)
[2023-07-09 15:04] LABS: TOT PROT 6.9 g/dl (6.4-8.2)
[2023-07-09 15:05] LABS: CREATININE 1.6 mg/dL (0.55-1.3)
[2023-07-09 15:08] LABS: BILIRUBIN,TOTAL 0.4 mg/dL (0.2-1)
[2023-07-09 16:05] LABS: POTASSIUM 4.3 mmol/L (3.5-5.1)
[2023-07-09 16:06] LABS: CALCIUM 8.3 mg/dL (8.5-10.1)
[2023-07-09 16:07] LABS: BLOOD UREA NITROGEN 22.1 mg/dL (7-18)
[2023-07-09 16:10] LABS: CREATININE 1.6 mg/dL (0.55-1.3)
[2023-07-09] MEDS ORDERED: ACETAMINOPHEN INJECTION 100 ML IVPB ONE (16:45)
[2023-07-09] MEDS: ACETAMINOPHEN 1000 MG/100 ML BAG IVPB ONE (16:52)
[2023-07-09] MEDS: SODIUM CHLORIDE 0.9% 500 ML INFUS.BAG IV ONE ×2 (16:52)
[2023-07-09] MEDS ORDERED: hydrALAZINE HCL 25 MG TABLET (FP) ONE (17:51)
[2023-07-09] MEDS: hydrALAZINE HCL 25 MG TABLET (FP) PO ONE (17:53)
[2023-07-09] MEDS: ACETAMINOPHEN 1000 MG/100 ML BAG IVPB PRN (21:29)
[2023-07-09] MEDS: PIPERACILLIN/TAZOB 3.375 GM 3.375 GM in DEXTROSE 5%-WATER - 50 ML IVPB SCH (22:10)
[2023-07-09] MEDS: INSULIN ASPART SLIDING SCALE (NOVOLOG) 1 VIAL SQ SCH (22:27)
[2023-07-09] MEDS: oxyCODONE HCL 5 MG TABLET PO PRN (22:55)
[2023-07-09 23:33] VITALS: RESP 18
[2023-07-10] MEDS: hydrALAZINE HCL 25 MG TABLET (FP) PO ONE (02:12)
[2023-07-10] MEDS: VANCOMYCIN/WATER FOR INJ (PEG) 1,000 MG/200 ML BAG IVPB SCH (02:12)
[2023-07-10 08:27] LABS: BASO % 0.6 % (0-2.0); EOS % 3.6 % (0-4.5); HEMATOCRIT 29.1 % (32.4-45.2); HEMOGLOBIN 9.5 GM/dL (10.7-15.3); LYMPH % 12.3 % (8-40); MCH 32.3 pg (25.7-33.7); MCHC 32.6 g/dl (32.0-36.0); MEAN PLT VOLUME 9.1 fl (7.5-11.1); MONO % 7.5 % (3.8-10.2); PLATELET COUNT 268 10^3/uL (134-434); RBC 2.94 M/mm3 (3.60-5.2); RDW 13.8 % (11.6-15.6); WHITE BLOOD COUNT 7.6 K/mm3 (4.0-10.0)
[2023-07-10 08:44] LABS: POTASSIUM 3.9 mmol/L (3.5-5.1)
[2023-07-10 08:46] LABS: CALCIUM 8.6 mg/dL (8.5-10.1)
[2023-07-10 08:47] LABS: BLOOD UREA NITROGEN 19.2 mg/dL (7-18); MAGNESIUM 2.1 mg/dL (1.8-2.4)
[2023-07-10 08:50] LABS: CREATININE 1.2 mg/dL (0.55-1.3)
[2023-07-10 08:54] LABS: PHOSPHOROUS 3.5 mg/dL (2.5-4.9)
[2023-07-10] MEDS ORDERED: MELATONIN 5 MG TABLETS PO PRN (09:20)
[2023-07-10] MEDS: amLODIPine BESYLATE 10 MG TABLET (FP) PO SCH (10:21)
[2023-07-10] MEDS: APIXABAN 2.5 MG TABLET PO SCH (10:21)
[2023-07-10] MEDS: hydrALAZINE HCL 25 MG TABLET (FP) PO SCH (13:13)
[2023-07-10] MEDS: LIOTHYRONINE SODIUM 5 MCG TABLET PO SCH (13:13)
[2023-07-10] MEDS ORDERED: HEPARIN NA (PORCINE) 5,000 UNITS/ML 1ML VIAL SQ SCH (14:00)
[2023-07-10] MEDS: COLLAGENASE CLOSTRIDIUM HIST. 30 GRAMS TUBE TP SCH ×2 (17:04→17:35)
[2023-07-10] MEDS: PIPERACILLIN/TAZOB 3.375 GM 3.375 GM in DEXTROSE 5%-WATER - 50 ML IVPB SCH ×2 (17:34→17:36)
[2023-07-10] MEDS: VANCOMYCIN 1,000 MG in DEXTROSE 5%-WATER - 250 ML IVPB SCH (17:35)
[2023-07-10] MEDS: ATORVASTATIN CA 80 MG TABLET (FP) PO SCH (21:20)
[2023-07-10] MEDS ORDERED: ACETAMINOPHEN 325 MG TABLET (FP) PO PRN (23:00)
[2023-07-11] MEDS: LEVOTHYROXINE NA 100 MCG TABLET (FP) PO SCH (06:42)
[2023-07-11 09:52] LABS: BASO % 0.8 % (0-2.0); EOS % 2.1 % (0-4.5); HEMATOCRIT 32.9 % (32.4-45.2); HEMOGLOBIN 10.6 GM/dL (10.7-15.3); LYMPH % 10.2 % (8-40); MCH 32.2 pg (25.7-33.7); MCHC 32.3 g/dl (32.0-36.0); MEAN CELL VOLUME 99.6 fl (80-96); MEAN PLT VOLUME 9.5 fl (7.5-11.1); NEUT % 80.9 % (42.8-82.8); PLATELET COUNT 293 10^3/uL (134-434); RDW 13.8 % (11.6-15.6); WHITE BLOOD COUNT 7.7 K/mm3 (4.0-10.0)
[2023-07-11 10:21] LABS: ALBUMIN 2.8 g/dl (3.4-5.0); BLOOD UREA NITROGEN 14.5 mg/dL (7-18)
[2023-07-11 10:23] LABS: BILIRUBIN,TOTAL 0.5 mg/dL (0.2-1); CREATININE 1.2 mg/dL (0.55-1.3)
[2023-07-11] MEDS: DOCUSATE SODIUM 100 MG CAPSULE (FP) PO PRN (13:02)
[2023-07-11 13:34] VITALS: BP 170/74; PULSE 76; TEMP 98
[2023-07-11] MEDS ORDERED: hydrALAZINE HCL 50 MG TABLET (FP) PO SCH (14:37)
[2023-07-11] MEDS: LOSARTAN POTASSIUM 50 MG TABLET PO SCH (15:04)
[2023-07-11 15:59] VITALS: BMI 27.2
== END 2023-07-11 18:13 | disposition left against medical advice (07) | DRG 300 ==
LOC: JER 12:56 → OBSVTOIN 15:42 → JERBED 15:42 → J5S 18:23
PROVIDERS: ADMIT Internal Medicine; ATTEND Family Medicine
DX: E11.52 Type 2 diabetes mellitus with diabetic peripheral angiopathy with gangrene (principal); I96 Gangrene, not elsewhere classified; L03.115 Cellulitis of right lower limb; L97.518 Non-pressure chronic ulcer of other part of right foot with other specified severity; E78.5 Hyperlipidemia, unspecified; I25.10 Atherosclerotic heart disease of native coronary artery without angina pectoris; I12.9 Hypertensive chronic kidney disease with stage 1 through stage 4 chronic kidney disease, or unspecified chronic kidney disease; E11.22 Type 2 diabetes mellitus with diabetic chronic kidney disease; N18.9 Chronic kidney disease, unspecified; E03.9 Hypothyroidism, unspecified; N20.0 Calculus of kidney; E11.621 Type 2 diabetes mellitus with foot ulcer
CPT/HCPCS: 36415; 73630-TC-RT-FY; 73700-TC-RT; 80048; 80053; 82728; 82962; 83540; 83550; 83735; 84100; 84443; 85025; 85610; 85651; 85730; 86140; 87040; 93005; 93010; 99285-25; G0277; G0463-25; J0131

== ENCOUNTER 2023-10-15 12:55 | Inpatient (IN) | payer OTHER, BC ==
[2023-10-15 14:15] LABS: EOS % 2.7 % (0-4.5); HEMATOCRIT 34.8 % (32.4-45.2); HEMOGLOBIN 11.7 GM/dL (10.7-15.3); LYMPH % 14.8 % (8-40); MCH 31.8 pg (25.7-33.7); MCHC 33.7 g/dl (32.0-36.0); MEAN CELL VOLUME 94.6 fl (80-96); MEAN PLT VOLUME 9.2 fl (7.5-11.1); MONO % 7.2 % (3.8-10.2); NEUT % 74.3 % (42.8-82.8); PLATELET COUNT 278 10^3/uL (134-434); RBC 3.68 M/mm3 (3.60-5.2); RDW 13.2 % (11.6-15.6); WHITE BLOOD COUNT 9.3 K/mm3 (4.0-10.0)
[2023-10-15 14:20] LABS: INR 0.89 (0.83-1.09); PROTHROMBIN TIME (PATIENT) 10.1 SEC (9.7-13.0)
[2023-10-15 14:23] LABS: ACTIVATED PTT 31.8 SECONDS (25.2-36.5)
[2023-10-15 14:33] LABS: POTASSIUM 4.8 mmol/L (3.5-5.1)
[2023-10-15 14:36] LABS: ALBUMIN 2.8 g/dl (3.4-5.0); BLOOD UREA NITROGEN 29.7 mg/dL (7-18); CALCIUM 8.6 mg/dL (8.5-10.1)
[2023-10-15 14:39] LABS: CREATININE 1.7 mg/dL (0.55-1.3)
[2023-10-15 14:41] LABS: BILIRUBIN,TOTAL 0.4 mg/dL (0.2-1); TOT PROT 6.9 g/dl (6.4-8.2)
[2023-10-15] MEDS ORDERED: ACETAMINOPHEN 500 MG TABLET (FP) ONE (16:04)
[2023-10-15] MEDS: ACETAMINOPHEN 500 MG TABLET (FP) PO ONE (16:05)
[2023-10-15 20:46] VITALS: BMI 24.6
[2023-10-15] MEDS: ATORVASTATIN CA 80 MG TABLET (FP) PO SCH (21:30)
[2023-10-15] MEDS: APIXABAN 2.5 MG TABLET PO SCH (21:31)
[2023-10-15] MEDS: hydrALAZINE HCL 25 MG TABLET (FP) PO SCH (21:31)
[2023-10-15] MEDS: GABAPENTIN 300 MG CAPSULE PO SCH (21:31)
[2023-10-15] MEDS: INSULIN (NOVOLOG) ASPART 100 UNITS/ML 10ML VIAL SQ SCH (22:09)
[2023-10-16] MEDS: LIOTHYRONINE SODIUM 5 MCG TABLET PO SCH (06:19)
[2023-10-16] MEDS: LEVOTHYROXINE NA 125 MCG TABLET (FP) PO SCH (06:20)
[2023-10-16 08:38] LABS: EOS % 3.2 % (0-4.5); HEMATOCRIT 33.5 % (32.4-45.2); HEMOGLOBIN 11.1 GM/dL (10.7-15.3); MCH 31.9 pg (25.7-33.7); MCHC 33.1 g/dl (32.0-36.0); MEAN CELL VOLUME 96.4 fl (80-96); MEAN PLT VOLUME 9.2 fl (7.5-11.1); MONO % 8.4 % (3.8-10.2); NEUT % 72.4 % (42.8-82.8); PLATELET COUNT 238 10^3/uL (134-434); RBC 3.48 M/mm3 (3.60-5.2); RDW 12.9 % (11.6-15.6); WHITE BLOOD COUNT 8.3 K/mm3 (4.0-10.0)
[2023-10-16 09:00] LABS: POTASSIUM 4.1 mmol/L (3.5-5.1)
[2023-10-16 09:03] LABS: BLOOD UREA NITROGEN 25.2 mg/dL (7-18); CALCIUM 8.2 mg/dL (8.5-10.1)
[2023-10-16 09:04] LABS: ALBUMIN 2.6 g/dl (3.4-5.0)
[2023-10-16 09:06] LABS: CREATININE 1.6 mg/dL (0.55-1.3)
[2023-10-16 09:08] LABS: BILIRUBIN,TOTAL 0.3 mg/dL (0.2-1); TOT PROT 6.4 g/dl (6.4-8.2)
[2023-10-16] MEDS: amLODIPine BESYLATE 10 MG TABLET (FP) PO SCH (10:18)
[2023-10-16] MEDS: ACETAMINOPHEN 1000 MG/100 ML BAG IVPB PRN (17:46)
[2023-10-17] MEDS: COLLAGENASE CLOSTRIDIUM HIST. 30 GRAMS TUBE TP SCH (15:32)
[2023-10-17] MEDS: ACETAMINOPHEN 1000 MG/100 ML BAG IVPB ONE (22:01)
[2023-10-18 06:08] VITALS: RESP 18
[2023-10-18] MEDS: ACETAMINOPHEN 1000 MG/100 ML BAG IVPB PRN (12:22)
[2023-10-18 14:24] LABS: INR 1.02 (0.83-1.09); PROTHROMBIN TIME (PATIENT) 11.7 SEC (9.7-13.0)
[2023-10-19] MEDS ORDERED: ONDANSETRON 4 MG/2 ML VIAL IVPUSH PRN (08:55)
[2023-10-19] MEDS ORDERED: PROPOFOL 20 ML ONE (09:09)
[2023-10-19] MEDS ORDERED: MIDAZOLAM HCL 2 MG/2 ML SINGLE DOSE VIAL ONE (09:09)
[2023-10-19] MEDS ORDERED: LIDOCAINE HCL 2% (20ML MULTI-DOSE VIAL) ONE (09:11)
[2023-10-19] MEDS: BUPIVACAINE HCL/PF 0.5% (5 MG/ML) 30 ML VIAL IJ ONE (09:27)
[2023-10-19] MEDS: LIDOCAINE HCL 2% (50ML VIAL) NR ONE (09:27)
[2023-10-19] MEDS: LACTATED RINGERS SOLUTION 1,000 ML IV SCH (10:40)
[2023-10-19] MEDS: CEFTRIAXONE 2 GM in DEXTROSE 5%-WATER 100 ML IVPB SCH (11:31)
[2023-10-19] MEDS: ACETAMINOPHEN 325 MG TABLET (FP) PO PRN (16:11)
[2023-10-19] MEDS: oxyCODONE HCL 5 MG TABLET PO PRN (18:52)
[2023-10-21] MEDS: hydrALAZINE HCL 50 MG TABLET (FP) PO SCH (05:56)
[2023-10-21] MEDS: metoPROLOL SUCCINATE 25 MG TAB.SR.24H (FP) PO SCH (09:09)
[2023-10-21] MEDS ORDERED: NEBIVOLOL 2.5 MG TABLET (FP) PO SCH ×2 (10:00)
[2023-10-22] MEDS: LEVOTHYROXINE NA 100 MCG TABLET (FP) PO SCH (06:20)
[2023-10-22] MEDS: INSULIN ASPART SLIDING SCALE (NOVOLOG) 1 VIAL SQ SCH (16:19)
[2023-10-22] MEDS: LACTATED RINGERS SOLUTION 1,000 ML IV SCH (16:19)
[2023-10-22] MEDS: oxyCODONE HCL 5 MG TABLET PO ONE (21:14)
[2023-10-22] MEDS: ATORVASTATIN CA 80 MG TABLET (FP) PO SCH (21:15)
[2023-10-22] MEDS: GABAPENTIN 300 MG CAPSULE PO SCH (21:16)
[2023-10-22] MEDS: APIXABAN 2.5 MG TABLET PO SCH (21:16)
[2023-10-23] MEDS: LIOTHYRONINE SODIUM 5 MCG TABLET PO SCH (06:24)
[2023-10-23 08:38] VITALS: BP 150/50; PULSE 72; TEMP 98.6
[2023-10-23] MEDS: amLODIPine BESYLATE 10 MG TABLET (FP) PO SCH (10:03)
[2023-10-23] MEDS: COLLAGENASE CLOSTRIDIUM HIST. 30 GRAMS TUBE TP SCH (10:05)
[2023-10-23] MEDS: DAPTOMYCIN 350 MG in SODIUM CHLORIDE 50 ML IVPB SCH (10:27)
== END 2023-10-23 14:11 | disposition home health service (06) | DRG 988 ==
LOC: JER 12:55 → JERBED 15:05 → J6S 18:09
PROVIDERS: ADMIT Internal Medicine; ATTEND Internal Medicine
PROC: 0QBQ3ZX Excision of Right Toe Phalanx, Percutaneous Approach, Diagnostic (ICD-10-PCS; 2023-10-19)
PROC: 0QBR3ZX Excision of Left Toe Phalanx, Percutaneous Approach, Diagnostic (ICD-10-PCS; principal; 2023-10-19 09:00)
PROC: 02HV33Z Insertion of Infusion Device into Superior Vena Cava, Percutaneous Approach (ICD-10-PCS; 2023-10-23)
PROC: B518ZZA Fluoroscopy of Superior Vena Cava, Guidance (ICD-10-PCS; 2023-10-23)
DX: E11.69 Type 2 diabetes mellitus with other specified complication (principal); E11.52 Type 2 diabetes mellitus with diabetic peripheral angiopathy with gangrene; M86.8X7 Other osteomyelitis, ankle and foot; I96 Gangrene, not elsewhere classified; L97.518 Non-pressure chronic ulcer of other part of right foot with other specified severity; B95.7 Other staphylococcus as the cause of diseases classified elsewhere; E03.9 Hypothyroidism, unspecified; E11.621 Type 2 diabetes mellitus with foot ulcer; E78.5 Hyperlipidemia, unspecified; I25.2 Old myocardial infarction; E11.22 Type 2 diabetes mellitus with diabetic chronic kidney disease; I12.9 Hypertensive chronic kidney disease with stage 1 through stage 4 chronic kidney disease, or unspecified chronic kidney disease; N18.9 Chronic kidney disease, unspecified; Z89.421 Acquired absence of other right toe(s)
CPT/HCPCS: 11720; 36415; 36569; 73630-TC-LT; 73630-TC-RT-FY; 80053; 80061; 82962; 83036; 84443; 85025; 85610; 85730; 86850; 86900; 86901; 87070; 87075; 87186; 87205; 88305-TC; 88311-TC; 93005; 93010; 99285-25; G0463-25; J0131; J0878

== ENCOUNTER 2024-11-30 11:19 | Emergency (ER) | payer OTHER, BC ==
[2024-11-30 11:34] VITALS: TEMP 97.2; BMI 21.2
[2024-11-30] MEDS ORDERED: METOCLOPRAMIDE HCL INJECTION 10 MG/2 ML VIAL ONE (12:18)
[2024-11-30] MEDS: METOCLOPRAMIDE HCL INJECTION 10 MG/2 ML VIAL IVPUSH ONE (12:32)
[2024-11-30] MEDS: SODIUM CHLORIDE 0.9% 500 ML INFUS.BAG IV ONE ×4 (12:32→16:30)
[2024-11-30 12:59] VITALS: BP 163/68; PULSE 76; RESP 16
[2024-11-30 13:12] LABS: ABSOLUTE IMMATURE GRANULOCYTES 0.04 x10^3/uL (0.0-0.031); BASOPHILS # 0.05 x10^3/uL (0.01-0.08); EOSINOPHIL % 0.2 % (0.7-5.8); EOSINOPHILS # 0.02 x10^3/uL (0.04-0.36); MCHC 32.7 g/dl (32.2-35.5); MEAN CELL VOLUME 92.0 fl (79.4-94.8); MEAN PLT VOLUME 12.6 fl (9.4-12.3); MONOCYTE # 0.33 x10^3/uL (0.24-0.86); MONOCYTE % 3.1 % (4.7-12.5); RDW 12.6 % (12.4-16.4)
[2024-11-30 13:14] LABS: BG HCT 66.0 % (32.4-45.2); VENOUS BASE EXCESS 1.1 mmol/L (-2-2); VENOUS O2 SATURATION 28.8 % (70-80); VENOUS PCO2 54.0 mmHg (38-52); VENOUS PH 7.343 (7.310-7.410)
[2024-11-30 13:42] LABS: GLUCOSE,RANDOM 506 mg/dL (74-106)
[2024-11-30 13:43] LABS: TOT PROT 8.1 g/dl (6.4-8.2)
[2024-11-30 13:44] LABS: CO2 25 mmol/L (21-32)
[2024-11-30 13:45] LABS: ALK PHOS 99 U/L (40-150)
[2024-11-30 13:48] LABS: CREATININE 1.57 mg/dL (0.55-1.3); SGOT/AST 16 U/L (5-34); SGPT/ALT 13 U/L (0-55)
[2024-11-30 15:19] LABS: HIV INTERPRETATION NEGATIVE (NEGATIVE)
[2024-11-30 15:22] LABS: HCV DIAGNOSTIC IN-HOUSE W/RFLX NON-REACTIVE (NONREACTIVE)
[2024-11-30] MEDS ORDERED: ACETAMINOPHEN 325 MG TABLET (FP) PO PRN (17:42)
[2024-11-30] MEDS ORDERED: LEVOTHYROXINE NA 125 MCG TABLET (FP) PO ONE (17:42)
[2024-11-30] MEDS ORDERED: LEVOTHYROXINE 100 MCG, LEVOTHYROXINE 25 MCG PO ONE (18:15)
[2024-11-30] MEDS ORDERED: APIXABAN 2.5 MG TABLET PO SCH (22:00)
[2024-11-30] MEDS ORDERED: hydrALAZINE HCL 25 MG TABLET (FP) PO SCH (22:00)
[2024-12-01] MEDS ORDERED: LISINOPRIL 5 MG TABLET PO SCH (10:00)
== END 2024-11-30 18:20 | disposition left against medical advice (07) ==
LOC: JER 11:19
PROC: 3E033GC Introduction of Other Therapeutic Substance into Peripheral Vein, Percutaneous Approach (ICD-10-PCS; principal; 2024-11-30)
DX: R11.2 Nausea with vomiting, unspecified (principal); R10.13 Epigastric pain; T38.3X5A Adverse effect of insulin and oral hypoglycemic [antidiabetic] drugs, initial encounter
CPT/HCPCS: 36415; 71045-TC-FY; 80053; 82010; 82803; 82962; 83735; 84484; 85025; 86803; 87389; 93005; 93010; 99285-25